=== PATIENT | female | born 1985 | race Caucasian/White ===

== ENCOUNTER 2018-10-31 13:19 | Emergency (ER) | payer MEDICAID ==
[~2018-10-31] VITALS: Ht 152.4 cm; Wt 68.8 kg
[~2018-10-31 13:19] MED LIST: AMOX500C2 PO; BEN25 PO; IBUP-1542 PO; PREN1TAB49; TRAM50TA2 PO
[2018-10-31 13:30] VITALS: BP 140/70; PULSE 90; RESP 18; Ht 152.4 cm; Wt 68.8 kg
[2018-10-31] MEDS ORDERED: KETOROLAC 30 MG INJ IM STA (15:42)
== END 2018-10-31 16:45 | disposition home or self-care (01) ==
LOC: FTE 13:19
DX: H92.03 Otalgia, bilateral (principal)
CPT/HCPCS: 81003; 81025; 96372; J1885; Z7502